=== PATIENT | female | born 1960 | race Caucasian/White ===

== ENCOUNTER → 2024-12-08 | Outpatient (CLI) | payer MEDICARE, OTHER, SELFPAY ==
--- NOTE | 2024-12-08 07:28 | BI_ITS ---
EXAM: SCRN MAMM (CAD)W/MELANIE BILAT DATE: 12/08/2024 CLINICAL HISTORY: F, Age 63 y/o , SCREENING TECHNIQUE: Procedure Code: [id number] Modality: MG Procedure: SCRN MAMM (CAD)W/MELANIE BILAT COMPARISON: Prior exam(s) were compared FINDINGS: TISSUE DENSITY: The breasts are heterogeneously dense, which may obscure small masses. Bilateral Breast Mammographic Findings: No suspicious masses, calcifications or other abnormalities are identified. BI/SCRN MAMM (CAD)W/MELANIE BILAT IMPRESSION: No mammographic evidence of malignancy in either breast OVERALL FINAL ASSESSMENT BI-RADS 1: NEGATIVE. RECOMMENDATION: Routine annual follow-up in 1 Year A letter with findings and recommendations will be mailed to the patient. Reading Location: [id number]
== END | disposition home or self-care (01) ==
LOC: CT 07:11 → OPBI 07:14
PROVIDERS: PCP Family Medicine; Referring Provider Family Medicine; Visit Provider Family Medicine
DX: Z12.31 Encounter for screening mammogram for malignant neoplasm of breast (principal)
CPT/HCPCS: 77063; 77067

== ENCOUNTER → 2025-01-01 | Outpatient (CLI) | payer MEDICARE, OTHER, SELFPAY ==
--- OUTSIDE RECORDS SUMMARY | 2024-11-16 17:24 | XMS RPT_ITS ---
Author Name Auto Generated Organization [facility] Care Team Providers Care Mdm Developer Name Role Phone JAYESH BROWNE Referring Unavailable JAYESH BROWNE Primary Care Unavailable JAYESH BROWNE Attending Unavailable JAYESH BROWNE Referring Unavailable JAYESH BROWNE Attending Unavailable JAYESH BROWNE Attending Unavailable JAYESH BROWNE Attending Unavailable PROBLEMS DATE TYPE CONDITION / CODE ATTENDING STATUS [facility] 02/22/2023 Admitting Diagnosis Essential (primary) hypertension / I10(ICD-10) JAYESH BROWNE [facility]/2023 Admitting Diagnosis Impaired fasting glucose / R73.01(ICD-10) JAYESH BROWNE [facility] 02/22/2023 Admitting Diagnosis Mixed hyperlipidemia / E78.2(ICD-10) JAYESH BROWNE [facility] 02/28/2024 Admitting Diagnosis Encounter for general adult medical examination without abnormal findings / Z00.00(ICD-10) JAYESH BROWNE [facility] 02/28/2024 Admitting Diagnosis Encounter for screening for depression / Z13.31(ICD-10) JAYESH BROWNE Active [facility] 02/28/2024 Admitting Diagnosis Encounter for screening examination for mental health and behavioral disorders, unspecified / Z13.30(ICD-10) JAYESH BROWNE Active [facility] 02/28/2024 Admitting Diagnosis Acute cough / R05.1(ICD-10) JAYESH BROWNE [facility]CP PROCEDURES No Procedure Records Found RESULTS CBC WITH AUTO DIFFERENTIAL Collected: 1 04/29/2023 11:07 AM Status: F Source: [facility]CP Order Comment: Location: TYPE CODE TESTS RESULT OUT OF RANGE REFERENCE UNITS LAB CO81 WBC 7.4 3.8-10.6 K [facility] LAB CO82 RBC 4.6 3.8-5.1 M [facility] LAB CO83 HGB 14.0 11.5-15.5 g/dL LAB CO84 HCT 41.5 37.0-47.0 % LAB CO85 MCV 90.6 78.0-100.0 fL LAB CO86 MCH 30.6 27.0-31.0 pg LAB CO87 MCHC 33.7 32.0-36.0 g/dL LAB CO88 RDW 13.2 11.5-15.5 % LAB CO89 PLT 234 130-400 K [facility] LAB CO901 MPV 11.2 8.9-12.6 fL LAB CO91 SUSANNA % 62.0 40.0-74.0 % LAB CO92 LYMPH % 22.7 14.0-46.0 % LAB CO93 MONO % 8.6 4.0-13.0 % LAB CO94 EOS % 5.7 0.0-7.0 % LAB CO95 BASO % 0.7 0.0-3.0 % LAB CO875 IMMGRN% 0.3 0.0-3.0 % LAB CO640 NRBC% 0.0 0.0-0.9 % LAB CO96 SUSANNA # 4.6 1.8-7.8 K [facility] LAB CO97 LYMPH # 1.7 0.7-4.5 K [facility] LAB CO98 MONO # 0.6 0.1-1.0 K [facility] LAB CO99 EOS # 0.42 High 0.00-0.40 10*3/uL LAB CO100 BASO # 0.1 0.0-0.2 K [facility] LAB CO884 IMMGRN# 0.0 0.0-0.3 K [facility] Performed By: #### [id number] # ### ULISES KELLER ([id number]) [facility] [address] [facility], [address] [place] [address] HGBA1C Collected: 11:07 AM Status: F Source: [facility] COPCP Order Comment: Location: TYPE CODE TESTS RESULT OUT OF RANGE REFERENCE UNITS LAB CO36 HGBA1C 6.6 High 0.0-5.6 % Result Comment: Reference In terval: Normal: below 5.7% Prediabetes: 5.7% to 6.4% Diabetes: 6.5% or above Performed By: #### [id number] ### # ULISES KELLER ([id number]) [facility] [address] [facility], [address] [address] COMPREHENSIVE METABOLIC PANEL Collected : 02/28/2024 11:07 AM Status: F Source: [facility] COPCP Order Comment: Location: TYPE CODE TESTS RESULT OUT OF RANGE REFERENCE UNITS LAB CO12 TOTAL PROTEIN 7.5 5.7-8.2 g/dL LAB CO10 ALBUMIN 4.5 3.2-4.8 g/dL LAB CO103 GLOBULIN, TOTAL 3 g/dL LAB CO16 BILIRUBIN TOTAL 0.5 0.3-1.2 mg/dL LAB CO13 ALKALINE PHOSPHATASE 78 40-127 U/L LAB CO15 AST 48 High <=34 U/L LAB CO388 ALT 42 10-49 U/L LAB CO19 SODIUM 139 136-145 mmol/L LAB CO20 POTASSIUM 4.5 3.5-5.1 mmol/L LAB CO22 CHLORIDE 105 100-110 mmol/L LAB CO21 CO2 26 20-31 mmol/L LAB CO329 CALCIUM 9.7 8.7-10.7 mg/dL LAB CO23 BUN 13 9-23 mg/dL LAB CO24 CREATININE 1.0 0.6-1.0 mg/dL LAB CO516 GFR 63.0 >=60.0 mL/min/1. 73m*2 LAB CO101 B/C RATIO 13.0 10.0-28.6 NA LAB CO438 A/G RATIO 1.5 NA LAB CO28 GLUCOSE 113 High 74-106 mg/dL Performed By: #### [id number] #### ULISES KELLER ([id number]) [facility] ([facility]) [address] [facility], [facility] [address] [place] [address] LIPID PANEL Collected: 02/28/2024 11:07 AM Status: F Source: [facility] Order Comment: Location: TYPE CODE TESTS RESULT OUT OF RANGE REFERENCE UNITS LAB CO1 CHOLESTEROL 253 High <=200 mg/dL Result Comment: Low-risk lev els (desirable) < 200 mg/dL Moderate-risk levels (borderline) 200 to 239 mg/dL High-risk levels > or = 240 mg/dL LAB CO2 TRIGLYCERIDE 251 High <=150 mg/dL LAB CO3 HDL 38 Low >60 mg/dL LAB CO59 VLDL-CALC 50.2 High 0-30 mg/dl LAB CO62 CHOL/HDL RATIO 6.7 High <=4.0 NA LAB CO63 NON-HDL CHOL 215 NA Result Comment: LDL and Non- HDL goal dependent upon individual risk LAB CO60 LDL-CALC 165 High <=130 mg/dL Performed By: #### [id number] #### ULISES KELLER ([id number]) [facility] ([facility]) [address] [facility], [address] [place] [address] ALLERGIES DATE TYPE / CODE NAME / CODE REACTION SEVERITY SOURCE SYSTEMIC/[id number](S NOMED CT) NO KNOWN ALLERGIES [facility]CP ENCOUNTERS ADMIT/DISCHARGE ACCOUNT NUMBER ADMITTING ENCOUNTER CLASS LOCATION SOURCE 11/16/2024 [id number] Ambulatory Building:[facility] 06/09/2024/06/10/19 [id number] Ambulatory Building:[facility] 05/16/2024 [id number] [facility] ng:[facility] 02/29/2024 [id number] Ambulatory Building:[facility] 02/28/2024/02/28/20 24 [id number] Ambulatory Building:[facility]CP PAYERS ENCOUNTER GUARANTOR PAYER SUBSCRIBER SOURCE 11/16/2024 ALESSANDRA KUNZB: [place] [address]Csj: () [facility] Insurance:[facility]ENTERPolicy Number: [id number] Date:2022-04-05 ALESSANDRA HANSENDOB: [id number] [place] [address]Kvk: (HP) [facility] 06/09/2024 ALESSANDRA HANSENDOB: [place] [address]Det: () Primary Insurance:[facility]ENTERPoly Number: [id number] Date:2022-04-05 ALESSANDRA HANSENDOB: [id number] [place] [address]Ryt: () [facility] 05/16/2024 ALESSANDRA HANSENDOB: [address] [place] [address]Zzo: () [facility]: [id number] Date:Plan Name:MANAGED CARE ALESSANDRA HANSENDOB: [id number] [place], [place] [address]Qqu: () [facility] 02/29/2024 ALESSANDRA HANSENDOB: [place] [address]Psb: () Primary Insurance:[facility] CENTERPolicy Number: [id number] Date:2022-04-05 ALESSANDRA HANSENDOB: [id number] [place] [address]Rcn: () [facility]CP 02/28/2024 ALESSANDRAYULY DASILVA: [place] [address]Owj: () Primary Insurance:[facility] Number: [id number] Date:2022-04-05 ALESSANDRA DASILVA: [id number] [place] [address]Lec: () [facility]
--- OUTSIDE RECORDS SUMMARY | 2024-11-16 17:24 | XMS RPT_ITS ---
Author Name Auto Generated Organization [facility] Care Team Providers Care Digital Marketing Lead Name Role Phone JAYESH BROWNE Referring Unavailable JAYESH BROWNE Primary Care Unavailable JAYESH BROWNE Attending Unavailable JAYESH BROWNE Referring Unavailable JAYESH BROWNE Attending Unavailable JAYESH BROWNE Attending Unavailable JAYESH BROWNE Attending Unavailable PROBLEMS DATE TYPE CONDITION / CODE ATTENDING STATUS [facility] 02/22/2023 Admitting Diagnosis Essential (primary) hypertension / I10(ICD-10) JAYESH BROWNE [facility] Admitting Diagnosis Impaired fasting glucose / R73.01(ICD-10) JAYESH BROWNE [facility] 02/22/2023 Admitting Diagnosis Mixed hyperlipidemia / E78.2(ICD-10) JAYESH BROWNE [facility] 02/28/2024 Admitting Diagnosis Encounter for general adult medical examination without abnormal findings / Z00.00(ICD-10) JAYESH BROWNE [facility] 02/28/2024 Admitting Diagnosis Encounter for screening for depression / Z13.31(ICD-10) JAYESH BROWNE Active [facility] 02/28/2024 Admitting Diagnosis Encounter for screening examination for mental health and behavioral disorders, unspecified / Z13.30(ICD-10) JAYESH BROWNE Active [facility] 02/28/2024 Admitting Diagnosis Acute cough / R05.1(ICD-10) JAYESH BROWNE [facility]CP PROCEDURES No Procedure Records Found RESULTS CBC WITH AUTO DIFFERENTIAL Collected: 1 04/29/2023 11:07 AM Status: F Source: [facility] COPCP Order Comment: Location: TYPE CODE TESTS RESULT OUT OF RANGE REFERENCE UNITS LAB CO81 WBC 7.4 3.8-10.6 K [facility] LAB CO82 RBC 4.6 3.8-5.1 M [facility] LAB CO83 HGB 14.0 11.5-15.5 g/dL LAB CO84 HCT 41.5 37.0-47.0 % LAB CO85 MCV 90.6 78.0-100.0 fL LAB CO86 MCH 30.6 27.0-31.0 pg LAB CO87 MCHC 33.7 32.0-36.0 g/dL LAB CO88 RDW 13.2 11.5-15.5 % LAB CO89 PLT 234 130-400 K [facility] LAB CO901 MPV 11.2 8.9-12.6 fL LAB [...] LAB CO98 MONO # 0.6 0.1-1.0 K [facility] LAB CO99 EOS # 0.42 High 0.00-0.40 10*3/uL LAB CO100 BASO # 0.1 0.0-0.2 K [facility] LAB CO884 IMMGRN# 0.0 0.0-0.3 K [facility] Performed By: #### [id number] # ### ULISES KELLER ([id number]) [facility] ([facility]) [address] [facility], [address] [place] [address] HGBA1C Collected: 11:07 AM Status: F Source: [facility] COPCP Order Comment: Location: TYPE CODE TESTS RESULT OUT OF RANGE REFERENCE UNITS LAB CO36 HGBA1C 6.6 High 0.0-5.6 % Result Comment: Reference In terval: Normal: below 5.7% Prediabetes: 5.7% to 6.4% Diabetes: 6.5% or above Performed By: #### [id number] ### # ULISES KELLER ([id number]) [facility] ([facility]) [address] [facility], [address] [address] COMPREHENSIVE METABOLIC PANEL Collected : 02/28/2024 11:07 AM Status: F Source: [facility] COPCP Order Comment: Location: TYPE CODE [...] Performed By: #### [id number] #### ULISES KELLER ([id number]) [facility] ([facility]) [address] [facility], [facility] [address] [place] [address] LIPID PANEL Collected: 02/28/2024 11:07 AM Status: F Source: [facility] Order Comment: Location: TYPE CODE [...] Performed By: #### [id number] #### ULISES KELLER ([id number]) [facility] ([facility]) [address] [facility], [address] [place] [address] ALLERGIES DATE TYPE / CODE NAME / CODE REACTION SEVERITY SOURCE SYSTEMIC/[id number](S NOMED CT) NO KNOWN ALLERGIES [facility]CP ENCOUNTERS ADMIT/DISCHARGE ACCOUNT NUMBER ADMITTING ENCOUNTER CLASS LOCATION SOURCE 11/16/2024 [id number] Ambulatory Building:[facility] 06/09/2024/06/10/19 [id number] Ambulatory Building:[facility] 05/16/2024 [id number] [facility] ng:[facility] 02/29/2024 [id number] Ambulatory Building:[facility]CP 02/28/2024/02/28/20 24 [id number] Ambulatory Building:[facility] COPCP PAYERS ENCOUNTER GUARANTOR PAYER SUBSCRIBER SOURCE 11/16/2024 ALESSANDRA KUNZB: [place] [address]Ejc: () Primary Insurance:[facility]Policy Number: [id number] Date:2022-04-05 ALESSANDRA HANSENDOB: [id number] [place] [address]Cfp: (HP) [facility] 06/09/2024 ALESSANDRA HANSENDOB: [place] [address]Wcg: () Primary Insurance:[facility]ITALPoly Number: [id number] Date:2022-04-05 ALESSANDRA HANSENDOB: [id number] [place] [address]Wjz: () [facility] 05/16/2024 ALESSANDRA HANSENDOB: [address] [place] [address]Uaf: () Primary Insurance:[facility] Number: [id number] Date:Plan Name:MANAGED CARE ALESSANDRA HANSENDOB: [id number] [place], [place] [address]Enh: () [facility] 02/29/2024 ALESSANDRA HANSENDOB: [place] [address]Wfj: () Primary Insurance:[facility]ITALPolicy Number: [id number] Date:2022-04-05 ALESSANDRA HANSENDOB: [id number] [place] [address]Hkl: () [facility] 02/28/2024 ALESSANDRAYULY DASILVA: [place] [address]Mcr: () Primary Insurance:[facility] Number: [id number] Date:2022-04-05 ALESSANDRA DASILVA: [id number] [place] [address]Kbe: () [facility] COP[facility]
[2025-01-01 10:35] LABS: Hematocrit 40.7 % (37-47); Hemoglobin 13.5 g/dL (12.0-15.0); Immature Granulocytes Count 0.020 X10^3/uL (0.0-0.0); Mean Corp Hgb Conc 33.2 g/dL (32-36); Mean Corpuscular Volume 91.3 fL (81-99); Mean Platelet Vol. 11.1 fl (6.2-12.0); NRBC Flagged by Analyzer 0 % (0-5); Platelet Count 219 K/mm3 (150-450); RBC Distribution Width CV 13.0 % (11.6-14.6); RBC Distribution Width SD 42.8 fl (35.1-43.9); Red Blood Count 4.46 M/mm3 (4.2-5.4); White Blood Count 6.9 K/mm3 (4.4-11.0)
[2025-01-01 10:53] LABS: Creatinine, Urine (random) 181.00 mg/dL (28.00-217.00); Microalbumin,Random Urine < 12.0 mg/L (<20 mg/L)
[2025-01-01 11:17] LABS: AST(SGOT) 43 U/L (<=31); Alanine Aminotransfer ALT/SGPT 37 U/L (<=34); Albumin, Serum 4.1 g/dL (3.4-4.8); Alkaline Phosphatase 82 U/L (35-104); Anion Gap 13 (5-15); BUN 15 mg/dL (4-19); BUN/Creat Ratio 14.1 RATIO (10-20); Calcium,Total 9.5 mg/dL (7.6-11.0); Carbon Dioxide 23.3 mmol/L (21.0-32.0); Chloride 103 mmol/L (98-108); Cholesterol 248 mg/dL (<=200); Globulin 3.4 g/dL (2.2-4.2); Glucose 149 mg/dL (70-99); Hepatitis C Antibody Nonreactive (Nonreactive); Low Density Lipoprotein Calc. 164 mg/dL; Potassium 4.5 mmol/L (3.3-5.1); Triglycerides 240 mg/dL; Very Low Density Lipoprotein 48 mg/dL (5-40); cholesterol:hdl ratio screen 6.81
== END | disposition home or self-care (01) ==
LOC: MTLAB 08:18
PROVIDERS: PCP Family Medicine; Referring Provider Family Medicine; Visit Provider Family Medicine
DX: E11.9 Type 2 diabetes mellitus without complications (principal); I10 Essential (primary) hypertension; D64.9 Anemia, unspecified
CPT/HCPCS: 36415; 80053; 80061; 82043; 82570; 83036; 84443; 85025; 86803